=== PATIENT | female | born 1940 | race Two or more races ===

== ENCOUNTER 2021-12-14 11:14 | Inpatient (IN) | payer MEDICAID, OTHER ==
[~2021-12-14] VITALS: Ht 162.6 cm; Wt 66.5 kg
[2021-12-14 12:24] LABS: Basophils # (auto) 0.1 10 ^3/uL (0-0.2); Basophils % (auto) 1.1 % (0.0-2.0); Eosinophils # (auto) 0.1 10 ^3/uL (0-0.8); Lymphocytes # (auto) 0.9 10 ^3/uL (0.4-5.4); Lymphocytes % (auto) 15.1 % (10.0-50.0); Mean Corpuscular Hemoglobin 32.2 pg (28.0-32.0); Mean Corpuscular Hgb Conc. 33.4 g/dL (32.0-36.0); Mean Corpuscular Volume 96.4 fL (80.0-100.0); Monocytes # (auto) 0.5 10 ^3/uL (0-1.3); Monocytes % (auto) 9.5 % (0.0-12.0); Neutrophils # (auto) 4.2 10 ^3/uL (1.6-8.6); Neutrophils % (auto) 73.3 % (37.0-80.0); Nucleated Red Blood Cells % 0.1 %; Red Blood Cells 4.05 10^6/uL (4.0-5.20); White Blood Cell 5.7 10^3/uL (4.4-10.8)
[2021-12-14 12:41] LABS: BUN/Creatinine Ratio 13.5; Calcium 9.8 mg/dL (8.5-10.1); Potassium 3.9 mmol/L (3.5-5.1)
[2021-12-14 12:42] LABS: INR 2.81 (0.9-1.15); Partial Thromboplastin Time 44.9 sec (23.6-33.0)
[2021-12-14 12:49] LABS: Bilirubin, Total 10.5 mg/dL (0.2-1.0); Total Protein 7.9 g/dL (6.4-8.2)
[2021-12-14] MEDS ORDERED: OMNIPAQUE ORAL SOLN 500ml 12mg/ml PO ONE (13:22)
[2021-12-14 14:30] LABS: Amylase 70 U/L (25-115); Lipase 149 U/L (73-393)
[2021-12-14] MEDS ORDERED: IOHEXOL 350 MG/ML 100ML IJ ONE (15:07)
[2021-12-14] MEDS: SOD CHL 0.45% 1,000 ML IV SCH (15:15)
[2021-12-14] MEDS ORDERED: hydrALAZINE HCL 25 MG TAB PO PRN (15:30)
[2021-12-14 17:19] LABS: Urine Bacteria NONE SEEN /hpf (None Seen); Urine Blood Negative /uL (Negative); Urine Specific Gravity 1.021 (1.001-1.035); Urine WBC 3 /hpf (0 - 5)
[2021-12-14 22:00] VITALS: BP 112/62
[2021-12-15] MEDS ORDERED: ATOR20TA50 PO (01:33)
[2021-12-15 05:00] VITALS: BP 96/50
[2021-12-15] MEDS: SOD CHL 0.45% 1,000 ML IV SCH (06:05)
[2021-12-15 06:28] LABS: Basophils # (auto) 0.1 10 ^3/uL (0-0.2); Basophils % (auto) 1.4 % (0.0-2.0); Eosinophils # (auto) 0.1 10 ^3/uL (0-0.8); Eosinophils % (auto) 2.3 % (0.0-7.0); Hematocrit 35.9 % (36.0-46.0); Hemoglobin 12.6 g/dL (12.2-16.2); Lymphocytes # (auto) 0.9 10 ^3/uL (0.4-5.4); Lymphocytes % (auto) 19.7 % (10.0-50.0); Mean Corpuscular Hemoglobin 33.4 pg (28.0-32.0); Mean Corpuscular Hgb Conc. 35.1 g/dL (32.0-36.0); Mean Corpuscular Volume 95.4 fL (80.0-100.0); Monocytes # (auto) 0.4 10 ^3/uL (0-1.3); Monocytes % (auto) 8.4 % (0.0-12.0); Neutrophils % (auto) 68.2 % (37.0-80.0); Nucleated Red Blood Cells % 0.1 %; Red Blood Cells 3.77 10^6/uL (4.0-5.20); White Blood Cell 4.4 10^3/uL (4.4-10.8)
[2021-12-15 06:46] LABS: INR 1.83 (0.9-1.15)
[2021-12-15 07:05] LABS: Albumin 2.8 g/dL (3.4-5.0); BUN/Creatinine Ratio 14.6; Total Protein 7.1 g/dL (6.4-8.2)
[2021-12-15 07:11] LABS: Bilirubin, Total 10.2 mg/dL (0.2-1.0)
[2021-12-15 09:00] VITALS: BP 139/52
[2021-12-15 13:00] VITALS: BP 113/60
[2021-12-15] MEDS: ACETAMINOPHEN 325 MG TAB PO PRN ×2 (14:22→20:53)
[2021-12-15 17:00] VITALS: BP 105/69
[2021-12-15 20:00] VITALS: BP 99/53
[2021-12-15 22:00] VITALS: BP 99/53
[2021-12-16 05:00] VITALS: BP 108/50
[2021-12-16 06:04] LABS: Basophils # (auto) 0.1 10 ^3/uL (0-0.2); Eosinophils # (auto) 0.1 10 ^3/uL (0-0.8); Eosinophils % (auto) 3.3 % (0.0-7.0); Hematocrit 35.8 % (36.0-46.0); Hemoglobin 12.2 g/dL (12.2-16.2); Lymphocytes % (auto) 24.3 % (10.0-50.0); Mean Corpuscular Hemoglobin 32.4 pg (28.0-32.0); Mean Corpuscular Hgb Conc. 34.1 g/dL (32.0-36.0); Mean Corpuscular Volume 94.9 fL (80.0-100.0); Monocytes # (auto) 0.4 10 ^3/uL (0-1.3); Monocytes % (auto) 8.9 % (0.0-12.0); Neutrophils # (auto) 2.5 10 ^3/uL (1.6-8.6); Neutrophils % (auto) 61.5 % (37.0-80.0); Red Blood Cells 3.78 10^6/uL (4.0-5.20); Red Cell Distribution Width 15.2 % (11.8-14.3); White Blood Cell 4.1 10^3/uL (4.4-10.8)
[2021-12-16 08:53] VITALS: BP 109/65
[2021-12-16 09:22] LABS: Hepatitis B Surface Antibody Negative (Negative)
[2021-12-16 09:52] LABS: Hepatitis A Total Antibody Positive (Negative)
[2021-12-16 11:23] LABS: Hepatitis A Ab IgM Negative
[2021-12-16 11:24] LABS: Hepatitis B Core IgM Negative; Hepatitis C Antibody Negative (Negative)
[2021-12-16 12:27] VITALS: BP 111/51
[2021-12-16 16:42] VITALS: BP 114/46
[2021-12-16] MEDS: ACETAMINOPHEN 325 MG TAB PO PRN ×2 (17:14→23:12)
[2021-12-16] MEDS ORDERED: LEVOTHYROXINE SODIUM 50 MCG TAB PO ONE (18:00)
[2021-12-16 20:00] VITALS: BP 100/60
[2021-12-16 22:00] VITALS: BP 100/50
[2021-12-17 05:00] VITALS: BP 105/58
[2021-12-17] MEDS: LEVOTHYROXINE SODIUM 50 MCG TAB PO SCH (06:13)
[2021-12-17] MEDS: ACETAMINOPHEN 325 MG TAB PO PRN ×2 (06:13→15:30)
[2021-12-17 09:00] VITALS: BP 98/52
[2021-12-17] MEDS ORDERED: IODIXANOL 320MG/ML 100ML BTL IV ONE ×2 (09:00→09:57)
[2021-12-17] MEDS ORDERED: HEPARIN IN NS 1000Units/500mL 1,500 ML ONE (09:00)
[2021-12-17] MEDS ORDERED: LIDOCAINE 2%HCL (LOCAL ANESTH.) INJ 10ml MDV ONE ×4 (09:01→10:52)
[2021-12-17] MEDS ORDERED: fentaNYL CITRATE 100 MCG/2 ML VL ONE (09:35)
[2021-12-17] MEDS ORDERED: MIDAZOLAM HCL 2MG/2ML 2ml VIAL (1mg/ml) ONE (09:35)
[2021-12-17] MEDS ORDERED: cefTRIAXone 1GM/50ML D5W 50 ML IV ONE (10:32)
[2021-12-17] MEDS ORDERED: ATROPINE SULF 1 MG/10ml SYR ONE (10:32)
[2021-12-17] MEDS ORDERED: DOPamine 1600MCG/ML D5W 250 ML IV ONE (10:50)
[2021-12-17] MEDS ORDERED: PIPERACILLIN-TAZOB 3.375GM 100 ML IV ONE (11:00)
[2021-12-17 13:00] VITALS: BP 109/51
[2021-12-17 16:54] VITALS: BP 123/65
[2021-12-17] MEDS ORDERED: TEMAZEPAM 15 MG CAP PO ONE (19:15)
[2021-12-17] MEDS: HYDROcodone-ACET 10/325MG TAB PO PRN (21:44)
[2021-12-17 22:00] VITALS: BP 120/68
[2021-12-18 05:30] VITALS: BP 108/54
[2021-12-18] MEDS: LEVOTHYROXINE SODIUM 50 MCG TAB PO SCH (06:28)
[2021-12-18 09:00] VITALS: BP 94/43
[2021-12-18] MEDS: ONDANSETRON HCL 4 MG/2 ML VIAL IV PRN (10:21)
[2021-12-18 12:41] VITALS: BP 111/58
[2021-12-18 14:02] LABS: INR 2.68 (0.9-1.15)
[2021-12-18 14:10] LABS: Albumin 2.7 g/dL (3.4-5.0); Calcium 9.5 mg/dL (8.5-10.1); Potassium 4.4 mmol/L (3.5-5.1)
[2021-12-18 14:16] LABS: Total Protein 7.3 g/dL (6.4-8.2)
[2021-12-18 16:56] VITALS: BP 109/53
[2021-12-18] MEDS: HYDROcodone-ACET 10/325MG TAB PO PRN (19:49)
[2021-12-18] MEDS: ZOLPIDEM TARTRATE 5 MG TAB PO PRN (21:25)
[2021-12-18 22:00] VITALS: BP 107/49
[2021-12-19 05:00] VITALS: BP 99/56
[2021-12-19] MEDS: LEVOTHYROXINE SODIUM 50 MCG TAB PO SCH (06:34)
[2021-12-19 08:30] VITALS: BP 105/43
[2021-12-19] MEDS: ACETAMINOPHEN 325 MG TAB PO PRN ×2 (09:43→19:46)
[2021-12-19 12:30] VITALS: BP 108/64
[2021-12-19 17:00] VITALS: BP 105/56
[2021-12-19] MEDS: PSYLLIUM PWD 5.8GM PKG PO SCH (18:06)
[2021-12-19] MEDS ORDERED: PSYLLIUM PWD 5.8GM PKG PO ONE (18:15)
[2021-12-19] MEDS: ZOLPIDEM TARTRATE 5 MG TAB PO PRN (19:46)
[2021-12-19] MEDS: ONDANSETRON HCL 4 MG/2 ML VIAL IV PRN (20:02)
[2021-12-19 22:00] VITALS: BP 103/50
[2021-12-20 05:00] VITALS: BP 123/62
[2021-12-20] MEDS: LEVOTHYROXINE SODIUM 50 MCG TAB PO SCH (06:19)
[2021-12-20 09:00] VITALS: BP 129/64
[2021-12-20] MEDS: PSYLLIUM PWD 5.8GM PKG PO SCH (09:10)
[2021-12-20 13:00] VITALS: BP 115/70
[2021-12-20] MEDS: ONDANSETRON HCL 4 MG/2 ML VIAL IV PRN (13:30)
[2021-12-20 17:00] VITALS: BP 124/59
[2021-12-20] MEDS: ZOLPIDEM TARTRATE 5 MG TAB PO PRN (20:42)
[2021-12-20 22:00] VITALS: BP 124/59
[2021-12-21 05:00] VITALS: BP 125/71
[2021-12-21 06:43] LABS: INR 1.51 (0.9-1.15); Partial Thromboplastin Time 29.9 sec (23.6-33.0)
[2021-12-21] MEDS: LEVOTHYROXINE SODIUM 50 MCG TAB PO SCH (07:00)
[2021-12-21 09:31] VITALS: BP 107/57
[2021-12-21] MEDS: PSYLLIUM PWD 5.8GM PKG PO SCH (10:00)
[2021-12-21 11:03] VITALS: BP 107/57
[2021-12-21 12:58] VITALS: BP 106/75
== END 2021-12-21 13:00 | disposition hospice, home (50) | DRG 281 ==
LOC: ER 11:14 → EEVIPCON 14:38 → OVERFLOW 14:38 → WEST WING 20:00
PROVIDERS: ADMIT Internal Medicine; ATTEND Internal Medicine
PROC: [UNRECOGNIZED PROCEDURE] (principal; 2021-12-17)
PROC: 0F9230Z Drainage of Left Lobe Liver with Drainage Device, Percutaneous Approach (ICD-10-PCS; 2021-12-17)
DX: C25.9 Malignant neoplasm of pancreas, unspecified (principal); D68.9 Coagulation defect, unspecified; I95.89 Other hypotension; K75.89 Other specified inflammatory liver diseases; K80.51 Calculus of bile duct without cholangitis or cholecystitis with obstruction; I48.91 Unspecified atrial fibrillation; E78.5 Hyperlipidemia, unspecified; K76.9 Liver disease, unspecified; K59.00 Constipation, unspecified; I48.0 Paroxysmal atrial fibrillation; Z20.822 Contact with and (suspected) exposure to COVID-19; R00.1 Bradycardia, unspecified; I10 Essential (primary) hypertension; E03.9 Hypothyroidism, unspecified; R74.01 Elevation of levels of liver transaminase levels; K82.8 Other specified diseases of gallbladder; R59.1 Generalized enlarged lymph nodes; Z86.73 Personal history of transient ischemic attack (TIA), and cerebral infarction without residual deficits
CPT/HCPCS: 36415; 71260; 74177; 74181; 76705; 76942; 80053; 80074; 81001; 82105; 82140; 82150; 82247; 83690; 83880; 84443; 84484; 85025; 85610; 85730; 86038; 86301; 86704; 86706; 86708; 86803; 86850; 86900; 86901; 87340; 93005; 93306; 99152; 99153; G0378; J0696; J2001; J2250; J2405; J2543; Q9967

== ENCOUNTER 2022-03-07 15:45 | Inpatient (IN) | payer MEDICAID ==
[~2022-03-07] VITALS: Ht 160 cm; Wt 61.2 kg
[~2022-03-07 15:45] MED LIST: ATOR20TA50 PO
[2022-03-07] MEDS ORDERED: ONDANSETRON HCL 4 MG/2 ML VIAL IV PRN ×2 (16:30→21:45)
[2022-03-07] MEDS ORDERED: ACETAMINOPHEN 325 MG TAB PO ONE (17:00)
[2022-03-07 18:19] LABS: Basophils # (auto) 0 10 ^3/uL (0-0.2); Eosinophils # (auto) 0.2 10 ^3/uL (0-0.8); Eosinophils % (auto) 3.6 % (0.0-7.0); Hemoglobin 12.2 g/dL (12.2-16.2); Lymphocytes # (auto) 0.8 10 ^3/uL (0.4-5.4); Lymphocytes % (auto) 17.1 % (10.0-50.0); Mean Corpuscular Hgb Conc. 33.8 g/dL (32.0-36.0); Mean Corpuscular Volume 94.7 fL (80.0-100.0); Monocytes # (auto) 0.4 10 ^3/uL (0-1.3); Monocytes % (auto) 9.2 % (0.0-12.0); Neutrophils # (auto) 3.3 10 ^3/uL (1.6-8.6); Neutrophils % (auto) 69.1 % (37.0-80.0); Nucleated Red Blood Cells % 0.1 %; White Blood Cell 4.8 10^3/uL (4.4-10.8)
[2022-03-07 18:48] LABS: Albumin 3.1 g/dL (3.4-5.0); BUN/Creatinine Ratio 8.3; Calcium 9.9 mg/dL (8.5-10.1); Potassium 3.8 mmol/L (3.5-5.1)
[2022-03-07 18:50] LABS: Bilirubin, Total 4.3 mg/dL (0.2-1.0); Total Protein 8.5 g/dL (6.4-8.2)
[2022-03-07] MEDS ORDERED: IOHEXOL 300 MG/ML 100ML BOTTLE IJ ONE (19:20)
[2022-03-07] MEDS ORDERED: MORPHINE SULFATE INJ 2 MG/ml SYRG IV PRN (21:45)
[2022-03-07 22:31] LABS: INR 1.07 (0.9-1.15); Partial Thromboplastin Time 29.1 sec (23.6-33.0)
[2022-03-07] MEDS: D5W/SOD CHLO 0.9% 1,000 ML IV SCH (23:45)
[2022-03-08] MEDS ORDERED: ACETAMINOPHEN 325 MG TAB PO ONE (00:30)
[2022-03-08] MEDS ORDERED: LORazepam 2MG/ML-1ML VIAL IV ONE (03:45)
[2022-03-08 05:53] LABS: Basophils # (auto) 0.1 10 ^3/uL (0-0.2); Basophils % (auto) 1.3 % (0.0-2.0); Eosinophils # (auto) 0.2 10 ^3/uL (0-0.8); Eosinophils % (auto) 3.3 % (0.0-7.0); Hematocrit 32.3 % (36.0-46.0); Hemoglobin 11.2 g/dL (12.2-16.2); Lymphocytes # (auto) 0.8 10 ^3/uL (0.4-5.4); Lymphocytes % (auto) 16.6 % (10.0-50.0); Mean Corpuscular Hemoglobin 32.8 pg (28.0-32.0); Mean Corpuscular Hgb Conc. 34.7 g/dL (32.0-36.0); Mean Corpuscular Volume 94.3 fL (80.0-100.0); Monocytes # (auto) 0.5 10 ^3/uL (0-1.3); Monocytes % (auto) 9.7 % (0.0-12.0); Neutrophils # (auto) 3.5 10 ^3/uL (1.6-8.6); Neutrophils % (auto) 69.1 % (37.0-80.0); Nucleated Red Blood Cells % 0.1 %; Red Blood Cells 3.43 10^6/uL (4.0-5.20); Red Cell Distribution Width 15.1 % (11.8-14.3)
[2022-03-08 06:00] LABS: Albumin 2.8 g/dL (3.4-5.0); Calcium 9.1 mg/dL (8.5-10.1); Potassium 3.6 mmol/L (3.5-5.1)
[2022-03-08 06:04] LABS: Bilirubin, Total 3.5 mg/dL (0.2-1.0); Total Protein 7.2 g/dL (6.4-8.2)
[2022-03-08] MEDS ORDERED: ACETAMINOPHEN 325 MG TAB PO PRN (09:15)
[2022-03-08] MEDS ORDERED: PANTOPRAZOLE 40 MG/10 ML VIAL INJ IV SCH (10:00)
[2022-03-08] MEDS: D5W/SOD CHLO 0.9% 1,000 ML IV SCH (11:05)
[2022-03-08] MEDS ORDERED: LIDOCAINE 2%HCL (LOCAL ANESTH.) INJ 10ml MDV ONE (12:49)
[2022-03-08] MEDS ORDERED: IOHEXOL 300 MG/ML 100ML BOTTLE IJ ONE (12:49)
[2022-03-08 14:29] VITALS: BP 158/63
[2022-03-09] MEDS ORDERED: LEVOTHYROXINE SODIUM 50 MCG TAB PO SCH (07:00)
[2022-03-09] MEDS ORDERED: LEVOTHYROXINE SODIUM 25 MCG TAB PO SCH (07:00)
== END 2022-03-08 15:23 | disposition home or self-care (01) | DRG 813 ==
LOC: ER 15:45 → OVERFLOW 21:39
PROVIDERS: ADMIT Nurse Practitioner; ATTEND Internal Medicine
PROC: 0F2BX0Z Change Drainage Device in Hepatobiliary Duct, External Approach (ICD-10-PCS; principal; 2022-03-08)
PROC: BF101ZZ Fluoroscopy of Bile Ducts using Low Osmolar Contrast (ICD-10-PCS; 2022-03-08)
DX: T85.510A Breakdown (mechanical) of bile duct prosthesis, initial encounter (principal); C25.9 Malignant neoplasm of pancreas, unspecified; E78.5 Hyperlipidemia, unspecified; R74.01 Elevation of levels of liver transaminase levels; Z20.822 Contact with and (suspected) exposure to COVID-19; Y73.2 Prosthetic and other implants, materials and accessory gastroenterology and urology devices associated with adverse incidents; Z85.07 Personal history of malignant neoplasm of pancreas; Y92.89 Other specified places as the place of occurrence of the external cause
CPT/HCPCS: 36415; 74177; 74300; 80053; 83605; 83690; 85025; 85610; 85730; 96374; 96375; C1729; C9113; G0378; J2001; J2405; J7042

== ENCOUNTER 2022-04-26 13:15 | Inpatient (IN) | payer MEDICAID ==
[~2022-04-26] VITALS: Ht 157.5 cm; Wt 60.3 kg
[2022-04-26 14:10] LABS: Basophils # (auto) 0.1 10 ^3/uL (0-0.2); Eosinophils # (auto) 0.2 10 ^3/uL (0-0.8); Eosinophils % (auto) 3.9 % (0.0-7.0); Hemoglobin 10.8 g/dL (12.2-16.2); Lymphocytes # (auto) 0.8 10 ^3/uL (0.4-5.4); Lymphocytes % (auto) 14.7 % (10.0-50.0); Mean Corpuscular Hemoglobin 31.5 pg (28.0-32.0); Mean Corpuscular Hgb Conc. 32.8 g/dL (32.0-36.0); Mean Corpuscular Volume 96.1 fL (80.0-100.0); Monocytes # (auto) 0.5 10 ^3/uL (0-1.3); Monocytes % (auto) 9.1 % (0.0-12.0); Neutrophils # (auto) 3.9 10 ^3/uL (1.6-8.6); Neutrophils % (auto) 71.3 % (37.0-80.0); Nucleated Red Blood Cells % 0.1 %; Red Blood Cells 3.43 10^6/uL (4.0-5.20); Red Cell Distribution Width 15.9 % (11.8-14.3); White Blood Cell 5.5 10^3/uL (4.4-10.8)
[2022-04-26 14:24] LABS: INR 1.14 (0.9-1.15); Partial Thromboplastin Time 28.7 sec (24.6-33.4)
[2022-04-26 14:28] LABS: Albumin 3.2 g/dL (3.4-5.0); BUN/Creatinine Ratio 9.7; Calcium 9.3 mg/dL (8.5-10.1); Potassium 3.3 mmol/L (3.5-5.1)
[2022-04-26 14:30] LABS: Bilirubin, Total 3.4 mg/dL (0.2-1.0); Total Protein 7.7 g/dL (6.4-8.2)
[2022-04-26] MEDS ORDERED: POTASSIUM EFFERVESENT TAB 25 MEQ PO ONE (15:30)
[2022-04-27] MEDS ORDERED: SODIUM CHLORIDE 0.9% 1,000 ML IV SCH (02:45)
[2022-04-27] MEDS ORDERED: ONDANSETRON HCL 4 MG/2 ML VIAL IV PRN (02:45)
[2022-04-27 05:25] VITALS: BP 142/64
[2022-04-27 06:15] LABS: Urine Bacteria NONE SEEN /hpf (None Seen); Urine Blood Negative /uL (Negative); Urine Specific Gravity 1.006 (1.001-1.035); Urine WBC 2 /hpf (0 - 5)
[2022-04-27] MEDS ORDERED: IODIXANOL 320MG/ML 100ML BTL IV ONE (08:03)
[2022-04-27] MEDS ORDERED: LIDOCAINE 2%HCL (LOCAL ANESTH.) INJ 10ml MDV ONE ×2 (08:03→09:03)
[2022-04-27] MEDS ORDERED: fentaNYL CITRATE 100 MCG/2 ML VL ONE (09:00)
[2022-04-27] MEDS ORDERED: MIDAZOLAM HCL 2MG/2ML 2ml VIAL (1mg/ml) ONE (09:00)
[2022-04-27] MEDS ORDERED: cefTRIAXone 1GM/50ML D5W 50 ML IV ONE (09:29)
[2022-04-27] MEDS ORDERED: DOCUSATE SOD 100 MG CAP PO ONE (11:15)
[2022-04-27] MEDS ORDERED: HYDROcodone-ACET 5/325MG TAB PO PRN (11:15)
== END 2022-04-27 12:10 | disposition home or self-care (01) | DRG 813 ==
LOC: ER 13:15 → OVERFLOW 04-27 02:34
PROVIDERS: ADMIT Nurse Practitioner; ATTEND Internal Medicine Nephrology
PROC: 0F9930Z Drainage of Common Bile Duct with Drainage Device, Percutaneous Approach (ICD-10-PCS; principal; 2022-04-27)
PROC: BF101ZZ Fluoroscopy of Bile Ducts using Low Osmolar Contrast (ICD-10-PCS; 2022-04-27)
DX: T85.510A Breakdown (mechanical) of bile duct prosthesis, initial encounter (principal); R17 Unspecified jaundice; E87.6 Hypokalemia; Z20.822 Contact with and (suspected) exposure to COVID-19; Y73.2 Prosthetic and other implants, materials and accessory gastroenterology and urology devices associated with adverse incidents; R74.01 Elevation of levels of liver transaminase levels; Z79.899 Other long term (current) drug therapy; Z85.07 Personal history of malignant neoplasm of pancreas
CPT/HCPCS: 36415; 71045; 74176; 75984; 80053; 81001; 84484; 85025; 85610; 85730; 99152; 99153; G0378; J0696; J2001; J2250; Q9967

== ENCOUNTER 2022-07-25 07:17 | Inpatient (IN) | payer MEDICAID ==
[~2022-07-25] VITALS: Ht 162.6 cm; Wt 52.9 kg
[2022-07-25] MEDS ORDERED: ONDANSETRON HCL 4 MG/2 ML VIAL IV ONE (11:30)
[2022-07-25] MEDS ORDERED: IOHEXOL 300 MG/ML 100ML BOTTLE IJ ONE (11:41)
[2022-07-25 12:02] LABS: Basophils # (auto) 0.1 10 ^3/uL (0-0.2); Eosinophils # (auto) 0.3 10 ^3/uL (0-0.8); Eosinophils % (auto) 3.8 % (0.0-7.0); Hematocrit 30.4 % (36.0-46.0); Hemoglobin 10.1 g/dL (12.2-16.2); Lymphocytes # (auto) 0.8 10 ^3/uL (0.4-5.4); Lymphocytes % (auto) 10.1 % (10.0-50.0); Mean Corpuscular Hemoglobin 32.1 pg (28.0-32.0); Mean Corpuscular Hgb Conc. 33.3 g/dL (32.0-36.0); Mean Corpuscular Volume 96.2 fL (80.0-100.0); Monocytes # (auto) 0.7 10 ^3/uL (0-1.3); Monocytes % (auto) 8.3 % (0.0-12.0); Neutrophils # (auto) 6.4 10 ^3/uL (1.6-8.6); Neutrophils % (auto) 76.8 % (37.0-80.0); Red Blood Cells 3.16 10^6/uL (4.0-5.20); Red Cell Distribution Width 13.1 % (11.8-14.3); White Blood Cell 8.3 10^3/uL (4.4-10.8)
[2022-07-25 12:18] LABS: Albumin 2.3 g/dL (3.4-5.0); Calcium 8.8 mg/dL (8.5-10.1); Potassium 3.6 mmol/L (3.5-5.1)
[2022-07-25 12:21] LABS: BUN/Creatinine Ratio 11.7; Bilirubin, Total 1.8 mg/dL (0.2-1.0); Total Protein 6.9 g/dL (6.4-8.2)
[2022-07-25] MEDS ORDERED: PANTOPRAZOLE 40 MG/10 ML VIAL INJ IV ONE (15:00)
[2022-07-25 15:36] LABS: INR 1.9 (0.9-1.15); Partial Thromboplastin Time 35.7 sec (24.6-33.4)
[2022-07-25 17:45] VITALS: BP 120/66
[2022-07-25] MEDS ORDERED: TRAM50TA2 PO (17:55)
[2022-07-25] MEDS ORDERED: DOCU100C10 PO (17:55)
[2022-07-25] MEDS ORDERED: MEGE40TA4 PO (17:55)
[2022-07-25] MEDS ORDERED: ATOR20TA50 PO (17:55)
[2022-07-25] MEDS ORDERED: LEVO50TA7 PO (17:55)
[2022-07-25] MEDS: MEGESTROL ACETATE 20 MG TAB PO SCH (18:18)
[2022-07-25] MEDS: traMADol HCL 50 MG TAB PO PRN (18:19)
[2022-07-25 20:00] VITALS: BP 134/72
[2022-07-25 22:00] VITALS: BP 134/72
[2022-07-25] MEDS ORDERED: ATORVASTATIN 20 MG TAB PO SCH (22:00)
[2022-07-25] MEDS: DOCUSATE SOD 100 MG CAP PO SCH (22:09)
[2022-07-26 05:00] VITALS: BP 123/79
[2022-07-26] MEDS ORDERED: LEVOTHYROXINE SODIUM 50 MCG TAB PO SCH (07:00)
[2022-07-26 07:31] LABS: INR 2.01 (0.9-1.15); Partial Thromboplastin Time 34.2 sec (24.6-33.4)
[2022-07-26] MEDS: MEGESTROL ACETATE 20 MG TAB PO SCH (08:35)
[2022-07-26] MEDS: DOCUSATE SOD 100 MG CAP PO SCH (08:35)
[2022-07-26] MEDS: traMADol HCL 50 MG TAB PO PRN ×2 (08:35→15:47)
[2022-07-26] MEDS ORDERED: PANTOPRAZOLE 40 MG/10 ML VIAL INJ IV SCH (10:00)
[2022-07-26] MEDS ORDERED: IOHEXOL 350 MG/ML 100ML IJ ONE (12:25)
[2022-07-26] MEDS ORDERED: LIDOCAINE 2%HCL (LOCAL ANESTH.) INJ 20ML MDV ONE (12:25)
[2022-07-26 13:00] VITALS: BP 130/53
[2022-07-26] MEDS ORDERED: MIDAZOLAM HCL 2MG/2ML 2ml VIAL (1mg/ml) ONE (13:10)
[2022-07-26] MEDS ORDERED: fentaNYL CITRATE 100 MCG/2 ML VL ONE (13:10)
[2022-07-26] MEDS ORDERED: CLIN300C8 PO (16:14)
== END 2022-07-26 17:25 | disposition home or self-care (01) | DRG 813 ==
LOC: ER 07:17 → OVERFLOW 15:04 → WEST WING 17:39
PROVIDERS: ADMIT Nurse Practitioner Family; ATTEND Family Medicine
PROC: 0F2BX0Z Change Drainage Device in Hepatobiliary Duct, External Approach (ICD-10-PCS; principal; 2022-07-26)
DX: T85.510A Breakdown (mechanical) of bile duct prosthesis, initial encounter (principal); E43 Unspecified severe protein-calorie malnutrition; K83.1 Obstruction of bile duct; D63.8 Anemia in other chronic diseases classified elsewhere; Z20.822 Contact with and (suspected) exposure to COVID-19; Y73.2 Prosthetic and other implants, materials and accessory gastroenterology and urology devices associated with adverse incidents; Y92.89 Other specified places as the place of occurrence of the external cause; Z51.5 Encounter for palliative care; Z85.07 Personal history of malignant neoplasm of pancreas
CPT/HCPCS: 36415; 71045; 74177; 76000; 80053; 83690; 85025; 85610; 85730; 96374; 96375; 99152; C9113; G0378; J2250; J2405

== ENCOUNTER 2022-08-22 08:02 | Emergency (ER) | payer MEDICAID ==
[~2022-08-22] VITALS: Ht 157.5 cm; Wt 46.9 kg
[~2022-08-22 08:02] MED LIST changes: +CLIN300C8 PO; +DOCU100C10 PO; +LEVO50TA7 PO; +MEGE40TA4 PO; +TRAM50TA2 PO
[2022-08-22 08:34] VITALS: BP 121/83
[2022-08-22 10:29] LABS: Basophils # (auto) 0.1 10 ^3/uL (0-0.2); Basophils % (auto) 0.8 % (0.0-2.0); Eosinophils # (auto) 0.8 10 ^3/uL (0-0.8); Eosinophils % (auto) 6.7 % (0.0-7.0); Hematocrit 34.2 % (36.0-46.0); Hemoglobin 11.2 g/dL (12.2-16.2); Lymphocytes # (auto) 0.8 10 ^3/uL (0.4-5.4); Mean Corpuscular Hemoglobin 32.5 pg (28.0-32.0); Mean Corpuscular Hgb Conc. 32.8 g/dL (32.0-36.0); Monocytes # (auto) 0.4 10 ^3/uL (0-1.3); Monocytes % (auto) 3.9 % (0.0-12.0); Neutrophils # (auto) 9.4 10 ^3/uL (1.6-8.6); Neutrophils % (auto) 81.6 % (37.0-80.0); Red Blood Cells 3.45 10^6/uL (4.0-5.20); White Blood Cell 11.5 10^3/uL (4.4-10.8)
[2022-08-22 10:58] LABS: INR 1.28 (0.9-1.15); Partial Thromboplastin Time 25.4 sec (24.6-33.4)
[2022-08-22 11:02] LABS: Albumin 2.8 g/dL (3.4-5.0); Potassium 4.2 mmol/L (3.5-5.1)
[2022-08-22 11:06] LABS: BUN/Creatinine Ratio 14.3; Bilirubin, Total 2.3 mg/dL (0.2-1.0); Total Protein 8.8 g/dL (6.4-8.2)
[2022-08-22] MEDS ORDERED: HYDROcodone-ACET 5/325MG TAB PO ONE (15:15)
== END 2022-08-22 16:54 | disposition home or self-care (01) ==
LOC: ER 08:02
DX: T85.590A Other mechanical complication of bile duct prosthesis, initial encounter (principal); Z79.2 Long term (current) use of antibiotics; Z79.899 Other long term (current) drug therapy
CPT/HCPCS: 36415; 80053; 85025; 85610; 85730